=== PATIENT | female | born 1955 ===

== ENCOUNTER 2021-01-27 20:03 | Emergency (ER) | payer BC ==
[~2021-01-27] VITALS: Ht 172.7 cm; Wt 63.0 kg
[2021-01-27 20:09] VITALS: BP 123/78
[2021-01-27] MEDS ORDERED: ANTIHYPERTENSIVE PO (20:12)
== END 2021-01-27 21:45 | disposition home or self-care (01) ==
LOC: EMS 20:18
DX: U07.1 COVID-19 (principal); R05 Cough; R50.9 Fever, unspecified; I10 Essential (primary) hypertension; F17.210 Nicotine dependence, cigarettes, uncomplicated
CPT/HCPCS: 71045; 93005; 99283